=== PATIENT | male | born 1975 | race Caucasian/White ===

== ENCOUNTER 2023-10-28 09:01 | Emergency (ER) | payer OTHER, SELFPAY ==
[2023-10-28 09:06] VITALS: BP 122/85; PULSE 70; RESP 15; TEMP 37; O2SAT 98
--- NOTE | 2023-10-28 09:28 | ED.GENADULT ---
HPI - General Adult General Chief complaint: Animal Bite <Sarah Sheppard October, Last Filed: 10/28/23 09:36> Stated complaint: dog bite to face <Sarah Sheppard October, Last Filed: 10/28/23 09:36> Time Seen by Provider: 10/28/23 09:05 <Sarah Sheppard October, Last Filed: 10/28/23 09:36> History of Present Illness HPI narrative: Shelton Maguire is a 48 y/o male who presents today after having a dog bite yesterday morning to the right side of his face. He states his neighbor is a nurse practitioner and she washed it out / glued it shut and put him on Augmentin but he is here to get a TDAP <Sarah Sheppard October, Last Filed: 10/28/23 09:36> Related Data Allergies/adverse reactions: Allergies Allergy/AdvReac Type Severity Reaction Status Date / Time No Known Allergies Allergy Verified 10/28/23 09:13 <Sarah Sheppard October, Last Filed: 10/28/23 09:36> Review of Systems Review of Systems: All systems reviewed & are unremarkable except as noted in HPI and below <Sarah Sheppard October, Last Filed: 10/28/23 09:36> Exam Narrative: GENERAL: Well-appearing, well-nourished, and in no acute distress. HEAD: Normocephalic, linear approximated wound to the right side of face EYES: PERRLA and EOMI. ENT: Nares clear, no rhinorrhea or epistaxis. Mucous membranes moist. Oropharynx without tonsillar hypertrophy exudate or other lesions NECK: Supple. No adenopathy or masses. No carotid bruits or JVD CHEST: Clear to auscultation. No respiratory distress. No wheezes rales or rhonchi HEART: Regular rate and rhythm. No murmur heard. Normal peripheral pulses. ABDOMEN: Soft, nontender, nondistended, normal active bowel sounds. EXTREMITIES: Normal range of motion. No edema. SKIN: Warm, dry, no rash. NEURO: No focal deficits. Alert and oriented x3. PSYCH: Normal mood and affect. 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 <Lynne St MD - Last Filed: 10/28/23 18:02> Vital Signs Vital signs: Vital Signs Temperature 98.6 F 10/28/23 09:06 Pulse Rate 70 10/28/23 09:06 Respiratory Rate 15 10/28/23 09:06 Blood Pressure 122/85 10/28/23 09:06 Pulse Oximetry 98 10/28/23 09:06 Oxygen Delivery Room Air 10/28/23 09:06 Temperature 98.2 F 10/28/23 09:47 Pulse Rate 64 10/28/23 09:47 Respiratory Rate 15 10/28/23 09:47 Blood Pressure 146/76 H 10/28/23 09:47 Pulse Oximetry 98 10/28/23 09:47 Oxygen Delivery Room Air 10/28/23 09:06 <Sarah Paniagua, [employer] P[employer]ENGER CAR - Last Filed: 10/28/23 09:36> Vital Signs Temperature 98.6 F 10/28/23 09:06 Pulse Rate 70 10/28/23 09:06 Respiratory Rate 15 10/28/23 09:06 Blood Pressure 122/85 10/28/23 09:06 Pulse Oximetry 98 10/28/23 09:06 Oxygen Delivery Room Air 10/28/23 09:06 Temperature 98.2 F 10/28/23 09:47 Pulse Rate 64 10/28/23 09:47 Respiratory Rate 15 10/28/23 09:47 Blood Pressure 146/76 H 10/28/23 09:47 Pulse Oximetry 98 10/28/23 09:47 Oxygen Delivery Room Air 10/28/23 09:06 <Lynne St MD - Last Filed: 10/28/23 18:02> Medical Decision Making MDM Narrative Medical decision making narrative: 48 y/o with dog bite to right side of face that happened yesterday -wound was irrigated out / glued shut by his neighbor Area appears approximated/ healing no evidence of cellulitis / edema He is on augmentin - he is just here for TDAP Plan to update Tdap He sounds low risk for rabies as he states it was a domesticated dog on a leash the dog appeared well <Sarah Paniagua, [employer] - Last Filed: 10/28/23 09:36> Vital Signs Vital Signs: Vital Signs Temperature 98.6 F 10/28/23 09:06 Pulse Rate 70 10/28/23 09:06 Respiratory Rate 15 10/28/23 09:06 Blood Pressure 122/85 10/28/23 09:06 Pulse Oximetry 98 10/28/23 09:06 Oxyge
[2023-10-28] MEDS: TETANUS,DIPHTHERIA,AC PERTUSSIS ADULT (0.5 ML) BOOSTRIX IM (09:42)
[2023-10-28 09:47] VITALS: BP 146/76; PULSE 64; RESP 15; TEMP 36.8; O2SAT 98
== END 2023-10-28 09:52 | disposition home or self-care (01) ==
PROVIDERS: Emergency Provider Nurse Practitioner Family
DX: S01.85XA Open bite of other part of head, initial encounter (principal); Z23 Encounter for immunization; W54.0XXA Bitten by dog, initial encounter
CPT/HCPCS: 90471; 90715; 99282